=== PATIENT | male | born 1960 | race African-American/Black ===

== ENCOUNTER 2025-05-05 17:36 | Emergency (ER) | payer OTHER, MEDICARE ==
[~2025-05-05] VITALS: Ht 167.6 cm; Wt 82.0 kg
[2025-05-05 17:38] VITALS: O2SAT 99
[2025-05-05 19:29] LABS: BASOPHILS % 0.9 % (0.0-2.0); EOSINOPHILS % 2.0 % (0.0-5.0); HEMATOCRIT. 41.0 % (42.0-52.0); HEMOGLOBIN. 13.3 g/dL (14.0-18.0); LYMPHOCYTES % 14.3 % (20.0-50.0); MEAN PLATELET VOLUME 8.3 fl (7.4-10.4); MONOCYTES % 9.5 % (2.0-8.0); NEUTROPHILS % 73.3 % (40.0-76.0); PLATELET 225 x1000/uL (130-400); RED BLOOD CELL COUNT 4.28 mill/uL (4.7-6.1); RED CELL DISTRIBUTION WIDTH 11.9 % (11.6-14.6)
[2025-05-05 19:42] LABS: CREATININE 1.2 mg/dL (0.6-1.3); UREA NITROGEN BLOOD 15 mg/dL (9-23)
[2025-05-05 19:43] LABS: TROPONIN I HIGH SENSITIVITY 5 ng/L (3.0-53)
[2025-05-05 19:44] LABS: ASPARTATE AMINOTRANSFERASE 34 IU/L (<34); BILIRUBIN DIRECT 0.3 mg/dL (<=3.0); BILIRUBIN TOTAL 1.0 mg/dL (0.1-1.0); PROTEIN TOTAL 7.4 g/dL (6.0-8.3)
[2025-05-05] MEDS ORDERED: LIDO-53 TP (19:56)
[2025-05-05] MEDS ORDERED: ACET-2708 MT (19:56)
[2025-05-05] MEDS: KETOROLAC 30MG/ML VIAL IM ONE (20:04)
[2025-05-05 20:15] VITALS: BP 156/85; PULSE 97; RESP 18; TEMP 37.7; O2SAT 96
[2025-05-05] MEDS: ACETAMINOPHEN 500MG TABLET PO ONE (20:49)
[2025-05-05] MEDS: LIDOCAINE 5% PATCH TOP SCH (20:50)
== END 2025-05-05 20:50 | disposition home or self-care (01) ==
LOC: ER 17:36
DX: R51.9 Headache, unspecified (principal); E11.9 Type 2 diabetes mellitus without complications; I10 Essential (primary) hypertension; I67.82 Cerebral ischemia; V89.2XXA Person injured in unspecified motor-vehicle accident, traffic, initial encounter; Y92.410 Unspecified street and highway as the place of occurrence of the external cause; Y93.89 Activity, other specified; Y99.8 Other external cause status
CPT/HCPCS: 99285; 70450; 71045; 80076; 80048; 83690; 83735; 85025; 84484; 36415; 72125; 93005; 96372; J1885